=== PATIENT | female | born 1965 ===

== ENCOUNTER 2021-09-16 14:38 | Observation (INO) ==
[2021-09-16] MEDS ORDERED: ONDANSETRON 4 MG/2 ML VIAL IV PRN (15:44)
[2021-09-16] MEDS ORDERED: HYDROmorphone 2 MG/1 ML VIAL IV PRN (15:44)
[2021-09-16] MEDS ORDERED: ACETAMINOPHEN 325 MG TABLET PO PRN (15:44)
[2021-09-16] MEDS ORDERED: LEVOFLOXACIN INJ 750 MG/150 ML PREMIX IV SCH (16:00)
[2021-09-16] MEDS: DEXTROSE 5% LACTATED RINGERS 1,000 ML IV SCH (16:55)
[2021-09-17] MEDS: DEXTROSE 5% LACTATED RINGERS 1,000 ML IV SCH ×2 (01:07→08:34)
[2021-09-17 04:48] LABS: Basophils % 0.3 % (0.0-0.8); Eosinophils # 0.1 10*3/uL (0.0-0.87); Hematocrit 38.2 VOL% (35.7-47.0); Hemoglobin 13.1 GM/DL (12.0-16.0); Immature Granulocytes % 0.5 %; Immature Granulocytes Absolute 0.03 #; Lymphocytes # 2.9 10*3/uL (1.4-4.0); Mean Corpuscular HGB Conc 34.3 GM/DL (32-36); Mean Corpuscular Volume 94.3 FL (87-102); Mean Platelet Volume 9.8 FL (9.6-12.0); Monocytes % 11.2 % (1.7-12.7); Platelet Count 293 T/CUMM (130-400); Red Blood Count 4.05 MC/CUMM (3.8-5.5); Red Cell Distribution Width 12.5 % (9.3-17.3); White Blood Count 6.1 T/CUMM (4-12)
[2021-09-17 04:59] LABS: Albumin 3.5 G/DL (3.4-5.0); Bilirubin,Total 0.4 MG/DL (0.20-1.00); Calcium 8.8 MG/DL (8.5-10.1); Osmolality,Calculated 277.5 MOS/KG (273-304)
[2021-09-17] MEDS ORDERED: POTASSIUM CHLORIDE RIDER 10 MEQ/100 ML PREMIX IV PRN (07:34)
[2021-09-17] MEDS ORDERED: PANTOPRAZOLE 40 MG TABLET PO SCH (09:00)
[2021-09-17] MEDS ORDERED: TISSUE ADHESIVE 1 EACH APPLICATOR TOP ONE (10:00)
[2021-09-17] MEDS ORDERED: LIDOCAINE 1%/EPI INJ 20 ML VIAL ONE (10:00)
[2021-09-17] MEDS ORDERED: BUPIVACAINE MPF 0.25% 30 ML VIAL ONE (10:00)
[2021-09-17] MEDS ORDERED: ENOXAPARIN 40 MG/0.4 ML SYRINGE SUBCUT SCH (10:00)
[2021-09-17] MEDS ORDERED: propofoL 200 MG/20 ML VIAL IV ONE (10:10)
[2021-09-17] MEDS ORDERED: ROCURONIUM 50 MG/5 ML VIAL IV ONE (10:10)
[2021-09-17] MEDS ORDERED: LIDOCAINE 2% 5 ML VIAL ONE (10:10)
[2021-09-17] MEDS ORDERED: fentaNYL 100 MCG/2 ML VIAL ONE (10:10)
[2021-09-17] MEDS ORDERED: ONDANSETRON 4 MG/2 ML VIAL ONE (10:15)
[2021-09-17] MEDS ORDERED: DEXAMETHASONE 4 MG/1 ML VIAL ONE ×2 (10:32)
[2021-09-17] MEDS ORDERED: ACETAMINOPHEN INJ 1,000 MG/100 ML VIAL IV ONE (10:42)
[2021-09-17] MEDS ORDERED: KETOROLAC 30 MG/1 ML VIAL ONE (10:42)
[2021-09-17] MEDS ORDERED: ACETAMINOPHEN INJ 0 MG/0 ML VIAL IV ONE (10:42)
[2021-09-17] MEDS ORDERED: GLYCOPYRROLATE 0.4 MG/2 ML VIAL ONE (10:59)
[2021-09-17] MEDS ORDERED: PROMETHAZINE INJ 25 MG in SODIUM CHLORIDE 0.9% 50 ML IV PRN (11:06)
[2021-09-17] MEDS ORDERED: diphenhydrAMINE 50 MG/1 ML VIAL IV PRN (11:06)
[2021-09-17] MEDS ORDERED: ONDANSETRON 4 MG/2 ML VIAL IV PRN (11:06)
[2021-09-17] MEDS ORDERED: HYDROmorphone 2 MG/1 ML VIAL IV PRN (11:06)
[2021-09-17] MEDS: MEPERIDINE 25 MG/1 ML VIAL IV PRN ×2 (11:10→11:20)
[2021-09-17] MEDS ORDERED: PROMETHAZINE 25 MG/1 ML VIAL ONE (11:18)
[2021-09-17 15:50] VITALS: BP 107/65
== END 2021-09-17 17:50 | disposition home or self-care (01) ==
LOC: N.EDINP 14:38 → N.ED 14:38 → N.3E 16:40
PROVIDERS: ADMIT Surgery; ATTEND Surgery
PROC: LAPCHOL (2021-09-17 10:09)